=== PATIENT | female | born 1950 | race Caucasian/White ===

== ENCOUNTER 2016-06-23 19:12 | Observation (INO) | payer MEDICARE ==
[~2016-06-23] VITALS: Ht 182.9 cm; Wt 81.4 kg
[~2016-06-23 19:12] MED LIST changes: -ACETAMINOPHEN 1000 MG/100 ML VIAL IV ONE; -ACETAMINOPHEN/HYDROcodone 325 MG/5 MG TAB ONE; -LACTATED RINGER'S 1000 ML INJ 1,000 ML ONE; -LIDOCAINE 1%/EPINEPHrine 1:100,000 SOLN 20 ML VIAL ONE; -MIDAZOLAM HCL 2 MG/2 ML VIAL ONE; -SODIUM CHLOR 0.9% 250 ML INJ 250 ML IV ONE; -VANCOMYCIN HCL 1000 MG VIAL ONE; -ceFAZolin INJ 1,000 MG VIAL ONE
[2016-06-23 19:14] VITALS: BP 116/78; PULSE 94; RESP 15; TEMP 97.8; O2SAT 96
[2016-06-23] MEDS ORDERED: SODIUM CHLOR 0.9% 1000 ML INJ 1,000 ML IV ONE (20:15)
[2016-06-23] MEDS ORDERED: MORPHINE SULFATE 4 MG/ML INJ IV PUSH ONE (20:15)
[2016-06-23] MEDS ORDERED: SODIUM CHLORIDE 0.9% FLUSH 10 ML FLUSH IVF PRN (20:15)
[2016-06-23] MEDS ORDERED: ONDANSETRON HCL 4 MG/2 ML VIAL IV PUSH ONE (20:15)
--- NOTE | 2016-06-23 20:15 | PD ---
HPI Chief Complaint: Skin Problem Time Seen by Provider: 19:59 Travel History International Travel<30 days: No Contact w/Intl Traveler<30days: No Traveled to known affect area: No History of Present Illness HPI Patient is a 66-year-old female who presents to emergency room with complaints of breast swelling and pain. Patient reports that she was diagnosed with ductal carcinoma on May 27, 2016, reports that today, she had right breast lumpectomy with sentinel lymph node biopsy around [address] Cristina. Patient reports that after her surgery, she was discharged from the surgical center around 4 PM. Patient reports that around 6 PM, she noticed increased swelling and bleeding from her lumpectomy site. Patient reports severe pain to her right breast with swelling, patient did try to call her surgeon and she was told to go to the emergency room for further workup. Patient reports that she was sent home with this risk for [place], reports that this has not helped with pain. PFSH Past Medical History Immunizations Current: Yes Tetanus Vaccination: Unknown Influenza Vaccination: No Social History Alcohol Use: No Tobacco Use: Yes Substance Use: No Allergies-Medications (Allergen,Severity, Reaction): Coded Allergies: No Known Allergies (Unverified , 06/23/16) Reported Meds & Prescriptions Reported Meds & Active Scripts Active No Active Prescriptions or Reported Medications Review of Systems General / Constitutional: No: Fever Eyes: No: Visual changes HENT: No: Headaches Cardiovascular: No: Chest Pain or Discomfort Respiratory: No: Shortness of Breath Gastrointestinal: No: Abdominal Pain Genitourinary: No: Dysuria Musculoskeletal: No: Pain Skin: Positive Breast Tenderness, Positive Breast Swelling, No Rash Neurologic: No: Weakness Psychiatric: No: Depression Endocrine: No: Polydipsia Hematologic/Lymphatic: No: Easy Bruising Physical Exam Narrative GENERAL: Moderate distress SKIN: Warm and dry. HEAD: Atraumatic. Normocephalic. EYES: Pupils equal and round. No scleral icterus. No injection or drainage. ENT: No nasal bleeding or discharge. Mucous membranes pink and moist. NECK: Trachea midline. No JVD. CARDIOVASCULAR: Regular rate and rhythm. No murmur appreciated. Patient with increased swelling/bruising to right breast, right lateral incisions with scant blood drainage RESPIRATORY: No accessory muscle use. Clear to auscultation. Breath sounds equal bilaterally. GASTROINTESTINAL: Abdomen soft, non-tender, nondistended. Hepatic and splenic margins not palpable. MUSCULOSKELETAL: No obvious deformities. No clubbing. No cyanosis. No edema. NEUROLOGICAL: Awake and alert. No obvious cranial nerve deficits. Motor grossly within normal limits. Normal speech. PSYCHIATRIC: Appropriate mood and affect; insight and judgment normal. Data Data Last Documented VS Vital Signs Date Time Temp Pulse Resp B/P Pulse Ox O2 Delivery O2 Flow Rate FiO2 06/23/16 20:40 16 06/23/16 19:14 97.8 94 116/78 96 Room Air Orders Complete Blood Count With Diff (06/23/16 20:06) Comprehensive Metabolic Panel (06/23/16 20:06) Blood Culture (06/23/16 20:06) Chest, Single Ap (06/23/16 20:06) Ecg Monitoring (06/23/16 20:06) Iv Access Insert/Monitor (06/23/16 20:06) Oximetry (06/23/16 20:06) Sodium Chloride 0.9% Flush (Ns Flush) (06/23/16 20:15) Morphine Inj (Morphine Inj) (06/23/16 20:15) Sodium Chlor 0.9% 1000 Ml Inj (Ns 1000 M (06/23/16 20:15) Ondansetron Inj (Zofran Inj) (06/23/16 20:15) Sugammadex Inj (Bridion Inj) (06/23/16 20:56) Lidocai-Epi 1%-1:100,000 Inj (Xylocaine- (06/23/16 21:04) Labs Laboratory Tests Test 06/23/16 20:15 White Blood Count 8.5 TH/MM3 Red Blood Count 3.98 MIL/MM3 Hemoglobin 12.6 GM/DL Hematocrit 36.4 % Mean Corpuscular Volume 91.4 FL Mean Corpuscular Hemoglobin 31.7 PG Mean Corpuscular Hemoglobin 34.7 % Concent Red Cell Distribution Width 13.2 % Platelet Count 223 TH/MM3 Mean Platelet Volume 9.8 FL Neutrophils (%) (Auto) 91.2 % Lymphocytes (%) (Auto) 6.0 % Monocytes (%) (Auto) 2.2 % Eosinophils (%) (Auto) 0.0 % Basophils (%) (Auto) 0.6 % Neutrophils # (Auto) 7.7 TH/MM3 Lymphocytes # (Auto) 0.5 TH/MM3 Monocytes # (Auto) 0.2 TH/MM3 Eosinophils # (Auto) 0.0 TH/MM3 Basophils # (Auto) 0.0 TH/MM3 CBC Comment DIFF FINAL Differential Comment Sodium Level 140 MEQ/L Potassium Level 4.0 MEQ/L Chloride Level 106 MEQ/L Carbon Dioxide Level 27.5 MEQ/L Anion Gap 7 MEQ/L Blood Urea Nitrogen 16 MG/DL Creatinine 0.81 MG/DL Estimat Glomerular Filtration 71 ML/MIN Rate Random Glucose 184 MG/DL Calcium Level 8.0 MG/DL Total Bilirubin 0.4 MG/DL Aspartate Amino Transf 16 U/L (AST/SGOT) Alanine Aminotransferase 24 U/L (ALT/SGPT) Alkaline Phosphatase 66 U/L Total Protein 6.5 GM/DL Albumin 3.3 GM/DL MDM Medical Decision Making Medical Screen Exam Complete: Yes Emergency Medical Condition: Yes Interpretation(s) Vital Signs Date Time Temp Pulse Resp B/P Pulse Ox O2 Delivery O2 Flow Rate FiO2 06/23/16 19:43 16 06/23/16 19:14 97.8 94 15 116/78 96 Room Air Differential Diagnosis Infection, postop swelling, abscess Narrative Course Patient is a 66-year-old female with history of ductal carcinoma resents to emergency room after she had a right breast lumpectomy as well as sentinel lymph node biopsies around 1pm today by Dr. Cristina. Patient here in the emergency room for evaluation of increased right breast bleeding and swelling An IV line was established, patient was given IV pain medications, lab work ordered. Call made to to review case Dr Cristina came to the ER to evaluate patient, patient will be brought to OR today for hematoma evacuation Physician Communication Physician Communication Discussed case with Dr. Cristina Diagnosis Primary Impression: Breast hematoma Admitting Information Admitting Physician Requests: Observation Scripts No Active Prescriptions or Reported Meds Caryn Looney DO Jun 23, 2016 20:15
[2016-06-23 20:31] VITALS: RESP 16
[2016-06-23 20:37] LABS: AUTOMATED NEUTROPHIL # 7.7 TH/MM3 (1.8-7.7); BASOPHIL % 0.6 % (0.0-2.0); HEMATOCRIT 36.4 % (35.0-46.0); HEMO FLAGS DIFF FINAL; LYMPHOCYTE # 0.5 TH/MM3 (1.0-4.8); MEAN CELL VOLUME 91.4 FL (80.0-100.0); MEAN CORPUSCULAR HEMOGLOBIN 31.7 PG (27.0-34.0); MEAN CORPUSCULAR HGB CONC 34.7 % (32.0-36.0); MONO % 2.2 % (0.0-8.0); NEUT % 91.2 % (16.0-70.0); PLATELET COUNT 223 TH/MM3 (150-450); RED BLOOD COUNT 3.98 MIL/MM3 (4.00-5.30); RED CELL DISTRIBUTION WIDTH 13.2 % (11.6-17.2); WHITE BLOOD COUNT 8.5 TH/MM3 (4.0-11.0)
[2016-06-23 20:41] LABS: ANION GAP 7 MEQ/L (5-15); AST (GOT) 16 U/L (15-37); BICARBONATE 27.5 MEQ/L (21.0-32.0); BLOOD UREA NITROGEN 16 MG/DL (7-18); CHLORIDE 106 MEQ/L (98-107); GLOMERULAR FILTRATION RATE 71 ML/MIN (>89); SODIUM (NA) 140 MEQ/L (136-145)
[2016-06-23 20:44] LABS: ALKALINE PHOSPHATASE 66 U/L (45-117); ALT (GPT) 24 U/L (10-53); TOTAL BILIRUBIN ADULT 0.4 MG/DL (0.2-1.0)
[2016-06-23] MEDS ORDERED: SUGAMMADEX SODIUM 200 MG/2 ML VIAL IV PUSH ONE ×4 (20:56→21:07)
[2016-06-23] MEDS: LIDOCAINE 1%/EPINEPHrine 1:100,000 SOLN 50 ML VIAL ONE ×2 (21:04→21:38)
--- NOTE | 2016-06-23 21:13 | RADRPT ---
EXAM DATE/TIME: 06/23/2016 20:45 [facility] COMPARISON: No previous studies available for comparison. INDICATIONS : Cough. MEDICAL HISTORY : Carcinoma, breast. SURGICAL HISTORY : Lumpectomy, mastectomy. ENCOUNTER: Initial ACUITY: 1 day PAIN SCORE: 0/10 LOCATION: Bilateral chest FINDINGS: The lungs are clear without infiltrate, nodule, or mass. There is no appreciable pleural effusion fo r technique. Heart and mediastinum are unremarkable. There are areas of lucency overlapping the righ t scapula probably related to collection of adipose tissue. CONCLUSION: No acute cardiopulmonary disease. Chary Vital MD on June 23, 2016 at 21:11 Board Certified Radiologist. This report was verified electronically.
[2016-06-23] MEDS ORDERED: FAMOTIDINE 20 MG/2 ML VIAL ONE (21:21)
[2016-06-23] MEDS ORDERED: METOCLOPRAMIDE HCL 10 MG/2 ML VIAL ONE (21:21)
[2016-06-23] MEDS ORDERED: SODIUM CHLORIDE 0.9% 20 ML VIAL ONE (21:25)
[2016-06-23] MEDS: ceFAZolin INJ 1,000 MG VIAL ONE ×2 (21:34→21:46)
[2016-06-23] MEDS ORDERED: BACITRACIN TOP OINT 15 GM TUBE ONE (22:08)
[2016-06-23] MEDS ORDERED: SODIUM CHLOR 0.9% 1000 ML INJ 1,000 ML IV SCH (22:23)
--- NOTE | 2016-06-23 22:23 | HHI.PR ---
cc: Micha Cristina MD Immediate Post Op Note Procedure Date: Jun 23, 2016 Pre Op Diagnosis: Right breast hematoma Post Op Diagnosis: Same Surgeon: Micha Cristina Electrical Service Technician(s): None Procedure: Incision and drainage right breast hematoma Findings: Small arterial bleeding vessel Complications: None Specimen(s) removed: None Estimated blood loss: 500 ml Anesthesia: General Drains: None IVF (1000 ml) Patient to: PACU Patient Condition: Good Date/Time of Procedure: SEE SURGICAL CARE RECORD Micha Cristina MD Jun 23, 2016 22:23
[2016-06-23] MEDS ORDERED: fentaNYL CITRATE 250 MCG/5 ML AMP ONE (22:28)
[2016-06-23] MEDS ORDERED: ONDANSETRON HCL 4 MG/2 ML VIAL IV PRN (22:30)
[2016-06-23] MEDS ORDERED: ACETAMINOPHEN/HYDROcodone 325 MG/5 MG TAB PO PRN ×2 (22:30)
[2016-06-23] MEDS ORDERED: MORPHINE SULFATE 4 MG/ML INJ IV PUSH PRN (22:30)
[2016-06-23] MEDS ORDERED: diphenhydrAMINE HCL 25 MG CAP PO PRN (22:30)
[2016-06-23] MEDS ORDERED: Post-op Orders (for Pharmacy) MISC XX ONE (22:30)
[2016-06-23] MEDS ORDERED: NALOXONE HCL 0.4 MG/ML AMP IV PRN (22:30)
[2016-06-23] MEDS ORDERED: SODIUM CHLORIDE 0.9% FLUSH 5 ML FLUSH IVF PRN (22:30)
[2016-06-23] MEDS ORDERED: DO NOT ADM ANY ANTICOAGULANT DRUGS XX PRN (22:45)
--- NOTE | 2016-06-23 23:46 | MH ---
cc: CLARITZA DEGROOT M.D. DATE OF ADMISSION: 06/23/2016 REASON FOR ADMISSION Expanding right breast hematoma. HISTORY OF PRESENT ILLNESS The patient is a 66-year-old female who underwent needle-localized lumpectomy and sentinel node biopsy earlier today. The patient had sudden swelling at about 06:00 p.m. today and has had increased size of the breast and significant increase in pain since that time. SOCIAL HISTORY: The patient does not drink but smokes. ALLERGIES: She has no known allergies. REVIEW OF SYSTEMS: Review of systems is negative except as indicated above. PHYSICAL EXAMINATION: Physical exam reveals a female who is uncomfortable. Vital signs: BP 116/78, pulse 94, respirations 15, temperature 97.8, 96% sat on room air. HEENT: Sclerae anicteric. Chest: Clear to auscultation. Cardiac exam reveals regular rate and rhythm. Breast: Right breast is grossly distended. There does not appear to be a axillary hematoma. This appears to be in the breast itself. There is significant bruising in some of the skin as well. Pulses are present. Neurologic: Exam is nonfocal. LABORATORY VALUES: Laboratory values demonstrate WBCs of 8.5, hemoglobin is 12.6, BUN and creatinine are 16 and 0.81. ASSESSMENT Expanding hematoma right breast, status post lumpectomy. PLAN The patient will be taken emergently to the operating room for exploration of the wound with incision and drainage of hematoma. I have discussed the need for this with the patient and her and they are agreeable. The risks of the procedure were discussed with them including but not limited to the need for re-exploration, brusing, increased risk of infection as well as possible need for drain placement. I have discussed remedies, consequences, alternatives, and convalescence; they vocalize understanding and agree to proceed. MD SAFIA Raphael/SALLIE /11:07 PM /11:42 PM
[2016-06-24] VITALS: BP 113/56; PULSE 81; RESP 20; TEMP 96.4; O2SAT 98
[2016-06-24 04:00] VITALS: BP 98/54; PULSE 98; RESP 18; TEMP 96.3; O2SAT 94
[2016-06-24] MEDS ORDERED: ceFAZolin 2 GM PREMIX 50 ML IV SCH (06:00)
[2016-06-24 08:00] VITALS: BP 105/53; PULSE 83; RESP 17; TEMP 96.7; O2SAT 97
[2016-06-24] MEDS ORDERED: SODIUM CHLORIDE 0.9% FLUSH 5 ML FLUSH IVF SCH (09:00)
[2016-06-24 12:00] VITALS: BP 107/60; PULSE 80; RESP 17; TEMP 96.9; O2SAT 98
--- NOTE | 2016-06-26 22:00 | MP ---
cc: DANELLE GARCÍA MD,CLARITZA ORTIZ,CINDY RINCON,RETA Diamond MD DATE OF SURGERY 06/23/16 PROCEDURE I&D right breast hematoma. PREOPERATIVE DIAGNOSIS Expanding hematoma. POSTOPERATIVE DIAGNOSIS Expanding hematoma secondary to small arterial bleeder ANESTHESIA General endotracheal SURGEON Staci Cristina MD ESTIMATED BLOOD LOSS 500 mL FLUIDS 700 mL crystalloid COMPLICATIONS None. DRAINS None. SPECIMEN None PROCEDURE IN DETAIL The patient was taken to the operating room and placed on the operating table in the supine position. After an adequate level of general endotracheal anesthesia was achieved, the right breast was prepped and draped in the field. Time-out was taken to confirm the correct patient, site and procedure to be performed. Previous sutures were then removed from the breast incision and bloody material removed. The patient appeared to have some bright red blood present. When this was removed, an small arterial bleeder was noted in the tissue laterally. This was controlled with suture ligature with a 3-0 silk suture. When this was accomplished, the remainder of the breast was able to be easily irrigated. No further bleeding was noted. When the cavity had been irrigated with 3 liters of antibiotic irrigation, the wound had Silvestre placed within it. With absolute hemostasis achieved, the wound was closed with interrupted 3-0 Vicryl suture and 5-0 PDS in a running subcuticular fashion. The wound was dressed with Steri-Strips. Bacitracin was placed over a small blister on the skin and the breast dressed. The patient remained hemodynamically stable throughout the entire procedure. She tolerated procedure well. MD SAFIA Raphael/ /11:11 PM /9:56 PM
== END 2016-06-24 14:19 | disposition home or self-care (01) ==
LOC: NEPA 19:12 → NEDA 21:09 → N07A 06-24 00:03
PROVIDERS: ADMIT Surgery Trauma Surgery; ATTEND Surgery Trauma Surgery
DX: L76.32 Postprocedural hematoma of skin and subcutaneous tissue following other procedure (principal); F17.210 Nicotine dependence, cigarettes, uncomplicated; Y83.8 Other surgical procedures as the cause of abnormal reaction of the patient, or of later complication, without mention of misadventure at the time of the procedure; D05.11 Intraductal carcinoma in situ of right breast
CPT/HCPCS: 71010; 80053; 85018; 85025; 87040; 96374; 96375; G0378; J0690; J2270; J2405; J2765; J3010; J7030

== ENCOUNTER → 2016-06-23 | Day surgery (SDC) | payer MEDICARE ==
[~2016-06-23] MED LIST: ACETAMINOPHEN 1000 MG/100 ML VIAL IV ONE; ACETAMINOPHEN/HYDROcodone 325 MG/5 MG TAB ONE; LACTATED RINGER'S 1000 ML INJ 1,000 ML ONE; LIDOCAINE 1%/EPINEPHrine 1:100,000 SOLN 20 ML VIAL ONE; MIDAZOLAM HCL 2 MG/2 ML VIAL ONE; ONDANSETRON HCL 4 MG/2 ML VIAL IV PUSH ONE; PROPOFOL 200 MG/20 ML AMP IV ONE; SODIUM CHLOR 0.9% 250 ML INJ 250 ML IV ONE; VANCOMYCIN HCL 1000 MG VIAL ONE; ceFAZolin INJ 1,000 MG VIAL ONE
--- NOTE | 2016-06-26 21:48 | MP ---
cc: RETA RINCON MD,DANELLE CRISTINA,CLARITZA ORTIZ,CINDY Dye M.D. DATE OF SURGERY 06/23/16 PROCEDURE 1. Right breast needle localized lumpectomy. 2. Excision right axillary sentinel lymph nodes x3, non-sentinel lymph nodes x2. PREOPERATIVE DIAGNOSIS Invasive ductal carcinoma right breast. POSTOPERATIVE DIAGNOSIS Invasive ductal carcinoma right breast ESTIMATED BLOOD LOSS 30 mL FLUIDS 1100 mL crystalloid. COMPLICATIONS None. DRAINS None. SPECIMEN Right breast needle localized tissue and right axillary sentinel nodes x3 and non-sentinel nodes x2 to pathology. SURGEON Staci Cristina MD CENTERLESS GRINDING MACHINE ADJUSTER JAMIE Rosa The LABORATORY COURIER was present from the beginning to the end of the case assisting in all portions of the procedure. This individual was present and was necessary throughout the case for appropriate retraction, dissection, visualization, and resection of the important anatomical structures during the procedure. PROCEDURE IN DETAIL The patient was taken to the Department of nuclear medicine where she underwent injection of the breast with technetium 99 sulfur colloid. She also underwent a placement of needle to localize the tumor specimen. She was then imaged in the Department of Nuclear Medicine and sentinel nodes were marked by the radiologist. She was brought to the operating room and placed on the operating table in the supine position. The right breast and axilla were prepped and draped in the field. Time-out was taken confirming the correct patient, site and procedures to be performed. Skin and subcutaneous tissue were infiltrated with local anesthetic and an incision was made in the right axilla directly over the areas marked by the radiologist. Dissection was carried down into the axilla guided by the navigator probe. Three nodes with activity above background were removed. While removing these nodes, two additional nodes were removed that did not have any activity above background when placed ex vivo. When all nodes had been removed, the axilla was reexamined. The lateral thoracic vein had been exposed but was intact. At this point with hemostasis assured, the wound was closed with interrupted 3-0 Vicryl suture and the skin closed with 5-0 PDS in a running subcuticular fashion. Attention was then turned to the breast. An incision was made midway between the nipple-areolar complex and the needle insertion site from approximately the 8 o'clock to 10 o'clock position on the breast. Dissection was carried out laterally to the needle which was cut at the skin and brought into the wound. A core of tissue was removed and dissection carried down to the pectoralis muscle. A generous amount of tissue was taken out and the specimen was oriented with silk sutures and passed off the table. The wound was made hemostatic while awaiting radiologic confirmation of the lesion having been removed. When this was confirmed, the wound was closed with in two layers with interrupted 3-0 Vicryl suture and 5-0 PDS in a running subcuticular fashion. The wound was dressed with Steri-Strips as was the axillary wound and the patient was taken back to the recovery room in stable condition. Sponge, needle and instrument counts were reported to be correct. MD SAFIA Raphael/ /11:00 PM /9:25 PM [facility]
== END | disposition home or self-care (01) ==
LOC: ESDC 06:49
PROVIDERS: ATTEND Surgery Trauma Surgery
DX: D05.11 Intraductal carcinoma in situ of right breast (principal)
CPT/HCPCS: 00400; 01610; 19125; 38525; 71010; 80053; 85025; 87040; 88307; 96374; 96375; 99284; G0378; J0131; J0690; J2250; J2270; J2405; J2765; J3010; J3370; J7030; J7050; J7120; 85018